=== PATIENT | male | born 1955 | race Caucasian/White ===

== ENCOUNTER 2017-02-08 06:45 | Emergency (ER) | payer OTHER ==
[~2017-02-08] VITALS: Ht 172.7 cm; Wt 79.4 kg
[~2017-02-08 06:45] MED LIST: BAYER CHEWABLE81 MG PO; CIPRO 500MG (E500 MG PO; ENDOCET 325 MG-1 TA1 PO; FLAGYL 25O MG250 M1 PO; FLEXERIL10 MG PO; GOOD SENSE ASP325 MG PO; IBU800 MG PO; IBUPROFEN800 M1 PO; KEFLEX500 M1 PO; LIDODERM1 EACH TOP; NAPROXEN500 MG PO; PERCOCET 325 MG1 TA2 PO; RANITIDINE HCL150 MG PO; RANITIDINE150 MG PO; TRAMADOL50 MG PO; TYLENOL #31 TAB PO; VICODIN 5-3001 EACH PO; VITAMIN D2000 UNI1 PO; VOLTAREN75 MG PO
[2017-02-08 06:55] VITALS: BP 123/74
--- NOTE | 2017-02-08 07:24 | ED HAND/WRIST INJURY COMPLAINT ---
History of Present Illness General Chief Complaint: Hand or Wrist Injury Stated Complaint: ? LT RING FINGER FX Source: patient, family, old records Exam Limitations: no limitations Vital Signs & Intake/Output Vital Signs & Intake/Output Vital Signs Date Time Temp Pulse Resp B/P Pulse O2 O2 Flow FiO2 Ox Delivery Rate 02/08 655 96.4 77 18 123/74 98 Room Air 02/08 0654 Room Air Allergies Coded Allergies: No Known Allergies (02/08/17) Reconcile Medications Aspirin (Linda Chewable Aspirin) 81 MG TAB.CHEW 1 TAB PO QAM HEART/BLOOD ( Reported) Cholecalciferol (Vitamin D3) (Vitamin D) (Unknown Strength) TABLET (Unknown Dose) PO QAM SUPPLEMENT (Reported) Oxycodone HCl/Acetaminophen (Percocet 5-325 MG Tablet) 5 MG-325 MG TABLET 1 TAB PO Q6P PRN pain Ranitidine (Ranitidine HCl) 150 MG TABLET 1 TAB PO QAM GI (Reported) Triage Note: TRIAGE: PATIENT TO ER FROM HOME REPORTS L MIDDLE FINGER INJURY WHILE PLACING HIS GARBAGE INTO GARBAGE CAN "TIE GOT LOOPED AROUND IT AND I HEARD A SNAP." PATIENT REPORTING 9/10 PAIN TO [facility] W/ [facility]. Triage Nurses Notes Reviewed? yes Occurred: just prior to arrival Duration: minute(s):, constant, continues in ED Timing: single episode today Injury Environment: home Severity: severe Pain/Injury Location: Left: 4th finger (RHD). Context: tourniquet injury Method of Injury: twisted Modifying Factors: Improves With: immobilization. Worsens With: movement. Associated Symptoms: GCS 15 since, stiffness HPI: Prior to admission patient was taking garbage out to throw into dumpster when the plastic tie entrapped his left ring finger proximal phalanx. He complains of severe pain limited range of motion constant nonradiating. Denies other injury fever chills nausea vomiting diarrhea abdominal pain chest pain shortness breath headache dysuria rash bleeding. Past History Travel History Traveled to [place] past 21 day No Medical History Any Pertinent Medical History? see below for history Neurological: NONE EENT: NONE Cardiovascular: NONE Respiratory: NONE Gastrointestinal: GERD Hepatic: NONE Renal: BORN W/ ONE KIDNEY Musculoskeletal: osteoarthritis Psychiatric: NONE Endocrine: NONE Blood Disorders: NONE Cancer(s): NONE PULP TESTER/Reproductive: NONE Surgical History Surgical History: LEFT HAND CYST REMOVED Psychosocial History What is your primary language Vincentian Tobacco Use: Refused to answer Family History Hx Contributory? No Review of Systems Review of Systems Constitutional: Reports: no symptoms. EENTM: Reports: no symptoms. Respiratory: Reports: no symptoms. Cardiovascular: Reports: no symptoms. GI: Reports: no symptoms. Genitourinary: Reports: no symptoms. Musculoskeletal: Reports: see HPI, joint pain, joint swelling. Skin: Reports: no symptoms. Neurological/Psychological: Reports: no symptoms. Hematologic/Endocrine: Reports: no symptoms. Immunologic/Allergic: Reports: no symptoms. All Other Systems: Reviewed and Negative Physical Exam Physical Exam General Appearance: well developed/nourished, alert, awake, anxious, moderate distress Head: atraumatic, normal appearance Eyes: Bilateral: normal appearance, PERRL, EOMI. Ears, Nose, Throat: normal pharynx, normal ENT inspection, hearing grossly normal Neck: normal inspection, supple Cardiovascular/Respiratory: normal breath sounds, regular rate/rhythm Back: normal inspection Shoulder Left: normal range of motion, normal inspection Shoulder Right: normal range of motion, normal inspection Elbow Left: normal range of motion, normal inspection Elbow Right: normal range of motion, normal inspection Forearm Left: normal range of motion, normal inspection Forearm Right: normal range of motion, normal inspection Wrist Left: normal range of motion, normal inspection Wrist Right: normal range of motion, normal inspection Hand Left: bone tenderness, limited range of motion, evidence of injury, swelling, tender, 4th finger Hand Right: normal inspection, normal range of motion Reflexes: 2+: bicep (R), bicep (L). Neurologic/Tendon: normal sensation, normal motor functions, normal tendon functions Skin: intact, normal color, warm/dry Lymphatic: no anterior cervical wiliam Progress Differential Diagnosis: fracture, sprain Plan of Care: Orders Procedure Date/time Status XRY-FINGERS, LEFT 02/09 720 Active Current Medications Sig/Tavo Start time Last Medication Dose Stop Time Status Admin Oxycodone/ 1 TAB ONCE ONE 02/08 730 UNVr Acetaminophen 02/08 731 (Percocet) Diagnostic Imaging: Viewed by Me: Radiology Read. Discussed w/RAD: Radiology Read. Radiology Impression: Comminuted fracture of the fourth digit proximal phalanx without significant displacement. Departure Departure Time of Disposition: 815 Disposition: HOME OR SELF CARE Condition: Stable Clinical Impression Primary Impression: Fracture of finger of left hand Referrals: LAZARA GARCIA,MAE (PCP/Family) SARA GARCIA,ROSIBEL Call for orthopedic follow up Departure Forms: Customer Survey General Discharge Information Prescriptions: Current Visit Scripts Oxycodone HCl/Acetaminophen (Percocet 5-325 MG Tablet) 1 TAB PO Q6P PRN pain #15 TAB
--- NOTE | 2017-02-08 07:50 | RADIOLOGY REPORT ---
EXAMINATION: XR FINGER, LEFT CLINICAL INFORMATION: Left ring finger tourniquet injury. COMPARISON: None TECHNIQUE: Three views of the left hand fourth digit. FINDINGS: There is a comminuted fracture of the fourth digit proximal phalanx. There is no significant displacement of fracture fragments. No definite intra-articular extension, although the fracture line does extend near the proximal interphalangeal joint. There is soft tissue swelling. Degenerative changes are seen throughout the interphalangeal joints with small osteophytes. Mild degenerative changes also present at the first carpometacarpal joint and first metacarpophalangeal joint. IMPRESSION: Comminuted fracture of the fourth digit proximal phalanx without significant displacement.
[2017-02-08] MEDS ORDERED: PERCOCET 5-3251 EACH PO (08:17)
== END 2017-02-08 08:16 ==
LOC: ERH 06:45
DX: S62.615A Displaced fracture of proximal phalanx of left ring finger, initial encounter for closed fracture (principal); X58.XXXA Exposure to other specified factors, initial encounter; Y92.9 Unspecified place or not applicable; Y93.9 Activity, unspecified
CPT/HCPCS: 73140-LT

== ENCOUNTER 2017-03-15 12:44 | Emergency (ER) | payer OTHER ==
[~2017-03-15] VITALS: Ht 175.3 cm; Wt 81.6 kg
[~2017-03-15 12:44] MED LIST changes: +PERCOCET 5-3251 EACH PO
[2017-03-15 12:48] VITALS: BP 135/75
--- NOTE | 2017-03-15 13:40 | RADIOLOGY REPORT ---
EXAMINATION: CHEST 2 VIEWS CLINICAL INFORMATION: Cough. COMPARISON: 06/11/2014. TECHNIQUE: PA and lateral views of the chest were obtained. FINDINGS: The cardiac silhouette is not enlarged. The mediastinal and hilar contours are unremarkable. There are neither pleural effusions nor pneumothoraces. There are no consolidations. The lungs are hyperinflated. There is mild degenerative change within the thoracic spine. The osseous structures are otherwise unremarkable. IMPRESSION: No evidence for acute disease. Lung hyperinflation.
--- NOTE | 2017-03-15 14:13 | ED DYSPNEA/ASTHMA COMPLAINT ---
History of Present Illness General Chief Complaint: General Adult Stated Complaint: COUGH/COLD SYMPTOMS, TICK BITE Source: patient Exam Limitations: no limitations Vital Signs & Intake/Output Vital Signs & Intake/Output Vital Signs Date Time Temp Pulse Resp B/P B/P Pulse O2 O2 Flow FiO2 Mean Ox Delivery Rate 03/15 1430 96 03/15 1349 96 Room Air 03/15 1345 96 03/15 1248 96.9 84 18 135/75 95 Room Air Allergies Coded Allergies: No Known Allergies (02/08/17) Reconcile Medications Albuterol Sulfate (Proventil Hfa) 90 MCG HFA.AER.AD 2 PUF INH Q4 SOB Aspirin (Linda Chewable Aspirin) 81 MG TAB.CHEW 1 TAB PO QAM HEART/BLOOD ( Reported) Benzonatate 200 MG CAPSULE 1 CAP PO TIDPRN cough Cholecalciferol (Vitamin D3) (Vitamin D) (Unknown Strength) TABLET (Unknown Dose) PO QAM SUPPLEMENT (Reported) Doxycycline Hyclate 100 MG TABLET 1 TAB PO BID BRONCHITIS Hydrocodone/Acetaminophen (Hydrocodon-Acetaminophen 5-325) 5 MG-325 MG TABLET 1-2 TAB PO Q4-6 PRN PRN PAIN Prednisone (Deltasone) 20 MG TABLET 1 TAB PO TID BRONCHITIS Ranitidine (Ranitidine HCl) 150 MG TABLET 1 TAB PO QAM GI (Reported) Triage Note: 61 YO MALE TO TRIAGE C/O TICK BITE ON MONDAY. PT REPORTS BODY ACHES AND SWELLING TO JOINTS. STATES VOICE HAS BEEN HOARSE. DENIES FEVERS. AFEBRILE AT THIS TIME. Triage Nurses Notes Reviewed? yes Onset: Abrupt Duration: day(s):, constant, continues in ED Timing: recent history Severity: moderate, severe HPI: 61-year-old male that smokes daily comes into emergency room with complaints of nasal congestion, sore throat, cough, mucus production, and some shortness of breath. Denies any chest pain. Denies any fever. Denies any vomiting. Nothing seems to make the symptoms better or worse. Symptoms of a going on for the past few days. Patient reports he was also bitten by a tick on Monday. He pulled a tick off himself. He does not think to take with on there for more than 24 hours. Patient also reports that he was here a couple weeks ago for a broken left ring finger. He came out of the splint and never followed up with orthopedic doctor he reports. (DOLORES WONG) Past History Travel History Traveled to [place] past 21 day No Medical History Any Pertinent Medical History? 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 No (DOLORES WONG) Review of Systems Review of Systems Constitutional: Reports: see HPI. EENTM: Reports: see HPI. Respiratory: Reports: see HPI. Cardiovascular: Reports: no symptoms. GI: Reports: no symptoms. Genitourinary: Reports: no symptoms. Musculoskeletal: Reports: no symptoms. Skin: Reports: no symptoms. Neurological/Psychological: Reports: no symptoms. Hematologic/Endocrine: Reports: no symptoms. Immunologic/Allergic: Reports: no symptoms. All Other Systems: Reviewed and Negative (DOLORES WONG) Physical Exam Physical Exam General Appearance: well developed/nourished, alert, awake Head: atraumatic, normal appearance Eyes: Bilateral: normal appearance, EOMI. Ears, Nose, Throat: normal pharynx, normal ENT inspection, hearing grossly normal Neck: normal inspection Respiratory: no respiratory distress, rhonchi, wheezing Cardiovascular: regular rate/rhythm Gastrointestinal: soft Extremities: normal inspection, normal range of motion Neurologic/Psych: awake, alert, oriented x 3, normal gait, normal mood/affect Skin: intact, normal color Core Measures ACS in differential dx? No Severe Sepsis Present: No Septic Shock Present: No (DOLORES WONG) Progress Differential Diagnosis: asthma, AMI, bronchitis, costochondritis, CHF, COPD, musculoskeletal pain, pericarditis, pulmonary embolism, pneumonia, pneumothorax, rib fracture, unstable angina Plan of Care: Orders Procedure Date/time Status AEROSOL (GEN) 03/15 1425 Complete AEROSOL (GEN) 03/15 1337 Complete Diagnostic Imaging: Viewed by Me: Radiology Read. Discussed w/RAD: Radiology Read. Radiology Impression: SERVICE DATE: 03/15/17-1315 EXAM TYPE: RAD - XRY-CHEST XRAY, PA AND LATERAL EXAMINATION: CHEST 2 VIEWS CLINICAL INFORMATION: Cough. COMPARISON: 06/11/2014. TECHNIQUE: PA and lateral views of the chest were obtained. FINDINGS: The cardiac silhouette is not enlarged. The mediastinal and hilar contours are unremarkable. There are neither pleural effusions nor pneumothoraces. There are no consolidations. The lungs are hyperinflated. There is mild degenerative change within the thoracic spine. The osseous structures are otherwise unremarkable. IMPRESSION: No evidence for acute disease. Lung hyperinflation. DICTATED BY: SOLE MOHAN MD DATE/TIME DICTATED:03/15/171334 RECYCLING MANAGER:AMEYA DATE/TIME TRANSCRIBED:03/15/171334 Initial ED EKG: none (NELIA KANG,DOLORES) Departure Departure Disposition: HOME OR SELF CARE Condition: Stable Clinical Impression Primary Impression: Bronchitis Secondary Impressions: Tick bite Referrals: MALIKA GARCIA,GIOVANNA HAILE MD,MAE (PCP/Family) Additional Instructions: Take prednisone, doxycycline, Tessalon Perles, and albuterol as prescribed. Take Vicodin for pain. Follow-up with your primary care doctor. Follow-up with orthopedic doctor provided for your finger. Return if any other concerns worsening symptoms. Follow-up with your primary care doctor be tested for Lyme disease in 4 weeks. Please go over all results of today's visit with your primary care doctor. Contact your primary care doctor to let them know you were here in the emergency room. There may be nonspecific findings which may not be related to your visit today here in the emergency room but may require further evaluation and chronic monitoring by your primary care doctor. If you had a laceration today the chance of foreign body always remains. You should follow-up with your primary care doctor for recheck in 3-5 days for a wound check. If you had an x-ray done there is a chance that a fracture could have been missed on initial read and you should follow-up with your primary care doctor for repeat x-rays if symptoms persist. If your blood pressure was elevated here in the emergency room please have rechecked by her primary care doctor within the next 48 hours by your primary care doctor. If you were prescribed a narcotic here in the emergency room or any type of controlled substances you're not allowed to drive while taking this medication or operate any type of heavy machinery. Narcotics can make you feel lightheaded dizziness nausea and can cause constipation. You may need to crop picker a stool softener. Thank you for choosing [facility] emergency room. Please return to the emergency room immediately if you have any other concerns worsening of symptoms. Departure Forms: Customer Survey General Discharge Information Prescriptions: Current Visit Scripts Benzonatate 1 CAP PO TIDPRN #30 CAP Prednisone (Deltasone) 1 TAB PO TID #12 MG Albuterol Sulfate (Proventil Hfa) 2 PUF INH Q4 #1 INHAL Doxycycline Hyclate 1 TAB PO BID #20 TAB Hydrocodone/Acetaminophen (Hydrocodon-Acetaminophen 5-325) 1-2 TAB PO Q4-6 PRN PRN PAIN #10 TAB Comments 03/15/2017 2:45:14 PM Symptoms are most consistent with bronchitis. Patient clinically looks well. In no apparent distress. Nontoxic appearing. Patient feels better after nebulizer treatment. Patient started on Doxy which will also have coverage for possible tickborne disease although patient reports a tick was not on there for 24 hours so unlikely that he will test positive. Patient was recommended to follow-up with his primary for a Lyme titer. Patient never followed up with orthopedic doctor for his broken finger a few weeks ago. He was referred to one today. Larry taped his finger. Clinically looks well. In no apparent distress. Nontoxic appearing. Reevaluated multiple times. Understands and agrees with plan of care. Symptoms go along with viral illness. No complaints of chest pain. (DOLORES WONG) PA/MICROBIOLOGY TEACHER Co-Sign Statement Statement: ED Attending supervision documentation- x I saw and evaluated the patient. I have also reviewed all the pertinent lab results and diagnostic results. I agree with the findings and the plan of care as documented in the PA's/MICROBIOLOGY TEACHER's documentation. [] I have reviewed the ED Record and agree with the PA's/MICROBIOLOGY TEACHER's documentation. [] Additions or exceptions (if any) to the PAs/MICROBIOLOGY TEACHER's note and plan are summarized below: [] (JESÚS GARCIA,NICK) Critical Care Note Critical Care Note Critical Care Time: non-applicable (DOLORES WONG)
[2017-03-15] MEDS ORDERED: DOXYCYCLINE HY100 M4 PO (14:14)
[2017-03-15] MEDS ORDERED: PROVENTIL HFA6.7 GM INH (14:14)
[2017-03-15] MEDS ORDERED: HYDROCODON-ACE1 EAC2 PO (14:14)
[2017-03-15] MEDS ORDERED: BENZONATATE200 M1 PO (14:14)
[2017-03-15] MEDS ORDERED: DELTASONE20 MG PO (14:14)
== END 2017-03-15 14:51 ==
LOC: ERH 12:44
DX: J40 Bronchitis, not specified as acute or chronic (principal); F17.210 Nicotine dependence, cigarettes, uncomplicated; W57.XXXA Bitten or stung by nonvenomous insect and other nonvenomous arthropods, initial encounter
CPT/HCPCS: 1263

== ENCOUNTER 2017-05-20 17:02 | Emergency (ER) | payer OTHER ==
[~2017-05-20] VITALS: Ht 172.7 cm; Wt 77.1 kg
[~2017-05-20 17:02] MED LIST changes: +BENZONATATE200 M1 PO; +DELTASONE20 MG PO; +DOXYCYCLINE HY100 M4 PO; +HYDROCODON-ACE1 EAC2 PO; +PROVENTIL HFA6.7 GM INH
--- NOTE | 2017-05-20 17:08 | ED SKIN/ALLERGY COMPLAINT ---
History of Present Illness General Chief Complaint: Animal/Insect Bite Stated Complaint: MULTIPLE BEE STINGS Source: patient Exam Limitations: no limitations Allergies Coded Allergies: bee venom protein (honey bee) (Severe, ANAPHYLAXIS 05/20/17) Reconcile Medications Aspirin (Linda Chewable Aspirin) 81 MG TAB.CHEW 1 TAB PO QAM HEART/BLOOD ( Reported) Epinephrine (Epipen) 0.3 MG/0.3 ML AUTO.INJCT 0.3 MG IM AD ANAPHYLAXIS Hydroxyzine HCl 50 MG TABLET 1 TAB PO TID ITCHING Naproxen 500 MG TABLET 1 TAB PO BID BURSITIS (Reported) Prednisone (Deltasone) 20 MG TABLET 1 TAB PO TID ALLERGIC REACTION Triage Nurses Notes Reviewed? yes Onset: Abrupt Duration: hour(s): (1), constant, continues in ED Timing: recent history Severity: moderate, severe No Modifying Factors: none HPI: 61 -year-old male comes in for allergic reaction after being stung by a bee about an hour prior to arrival. patient reports that his lips are swelling any signs of difficulty breathing and difficulty swallowing. He feels short of breath. He has rash throughout his body. Patient has not taken anything for the symptoms. Denies any other substances symptoms. Patient got stung by multiple bees when he was mowing the lawn he hit a hive. (NELIA KANG,DOLORES) Vital Signs & Intake/Output Vital Signs & Intake/Output Vital Signs Date Time Temp Pulse Resp B/P B/P Pulse O2 O2 Flow FiO2 Mean Ox Delivery Rate 05/20 2224 97.6 64 18 106/66 97 Room Air 05/20 2145 64 18 103/55 95 Room Air 05/20 2028 65 100/58 99 Room Air 05/20 1901 67 15 117/65 98 Room Air Room Air 05/20 1827 97.1 62 15 104/61 99 Nasal 2.0L Cannula 05/20 1749 64 15 93/59 100 Nasal 2.0L Cannula 05/20 1709 75 24 107/66 97 Room Air Past History Medical History Any Pertinent Medical History? 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 No (DOLORES WONG) Review of Systems Review of Systems Constitutional: Reports: no symptoms. EENTM: Reports: no symptoms. Respiratory: Reports: no symptoms. Cardiovascular: Reports: no symptoms. GI: Reports: no symptoms. Genitourinary: Reports: no symptoms. Musculoskeletal: Reports: no symptoms. Skin: Reports: see HPI. Neurological/Psychological: Reports: no symptoms. Hematologic/Endocrine: Reports: no symptoms. Immunologic/Allergic: Reports: see HPI. All Other Systems: Reviewed and Negative (DOLORES WONG) Physical Exam Physical Exam General Appearance: well developed/nourished, moderate distress Head: atraumatic Eyes: Bilateral: normal appearance, EOMI. Ears, Nose, Throat: normal ENT inspection, hearing grossly normal, mild tongue swelling, edema of lower lip, Neck: normal inspection Respiratory: no respiratory distress, rhonchi, wheezing Cardiovascular: regular rate/rhythm Back: normal inspection Extremities: normal inspection, normal range of motion, no edema Neurologic/Psych: awake, alert, oriented x 3, normal mood/affect Skin: intact, rash Skin Problem Location: generalized Skin Problem Character: urticarial Lymphatic: no anterior cervical wiliam (DOLORES WONG) Progress Differential Diagnosis: abscess/cellulitis, allergic reaction, anaphylaxis, angioedema, asthma, contact dermatitis Plan of Care: Current Medications Sig/Tavo Start time Last Medication Dose Stop Time Status Admin Sodium Chloride 500 ML BOLUS ONE 05/20 2100 CAN (Normal Saline 0.9%) 05/20 2159 Hand-Off Endorsed To: TAMMY MUSE DO Endorsed Time: 2053 Pending: other (reevaluation) Comments: 05/20/2017 7:59:41 PM Patient reevaluated. He feels significantly better. His swelling in his mouth was improved. His voice is improved. His rash is improved. 05/20/2017 8:54:00 PM Patient's blood pressure slightly low. Patient given a liter bolus. He reports that he feels significantly better and feels ready to go home and is asymptomatic otherwise. Patient will be further observed to make sure his blood pressure improves. Patient signout to Dr. Muse. (DOLORES WONG) Departure Departure Disposition: HOME OR SELF CARE Condition: Stable Clinical Impression Primary Impression: Anaphylaxis Referrals: MAE HAILE MD (PCP/Family) Additional Instructions: Take prednisone as prescribed. Carly epinephrine pen with you. Have any recurrent bee stings and are having respiratory distress use EpiPen. If you use hydroxyzine as prescribed. Please go over all results of today's visit with your primary care doctor. Contact your primary care doctor to let them know you were here in the emergency room. There may be nonspecific findings which may not be related to your visit today here in the emergency room but may require further evaluation and chronic monitoring by your primary care doctor. If you had a laceration today the chance of foreign body always remains. You should follow-up with your primary care doctor for recheck in 3-5 days for a wound check. If you had an x-ray done there is a chance that a fracture could have been missed on initial read and you should follow-up with your primary care doctor for repeat x-rays if symptoms persist. If your blood pressure was elevated here in the emergency room please have rechecked by her primary care doctor within the next 48 hours by your primary care doctor. If you were prescribed a narcotic here in the emergency room or any type of controlled substances you're not allowed to drive while taking this medication or operate any type of heavy machinery. Narcotics can make you feel lightheaded dizziness nausea and can cause constipation. You may need to picking machine operator a stool softener. Thank you for choosing [facility] emergency room. Please return to the emergency room immediately if you have any other concerns worsening of symptoms. Departure Forms: Customer Survey General Discharge Information Prescriptions: Current Visit Scripts Prednisone (Deltasone) 1 TAB PO TID #15 MG Hydroxyzine HCl 1 TAB PO TID #20 TAB Epinephrine (Epipen) 0.3 MG IM AD #1 PAC (DOLORES WONG) PA/STATISTICAL ASSISTANT Co-Sign Statement Statement: ED Attending supervision documentation- [X] I saw and evaluated the patient. I have also reviewed all the pertinent lab results and diagnostic results. I agree with the findings and the plan of care as documented in the PA's/STATISTICAL ASSISTANT's documentation. [] I have reviewed the ED Record and agree with the PA's/STATISTICAL ASSISTANT's documentation. [] Additions or exceptions (if any) to the PAs/STATISTICAL ASSISTANT's note and plan are summarized below: [] (MEDELLIN TAMMY GARCIA) Departure Comments 05/20/17 11:34 PM The patient was signed out to me by Dolores Aguirre. He remains asymptomatic in the emergency department Lungs are clear no stridor He was sleeping Now awake alert oriented 3 He was observed for approximately 6 hours He was discharged and will follow-up with his doctor this week., PA/STATISTICAL ASSISTANT Co-Sign Statement Statement: ED Attending supervision documentation- [] I saw and evaluated the patient. I have also reviewed all the pertinent lab results and diagnostic results. I agree with the findings and the plan of care as documented in the PA's/STATISTICAL ASSISTANT's documentation. [] I have reviewed the ED Record and agree with the PA's/STATISTICAL ASSISTANT's documentation. [] Additions or exceptions (if any) to the PAs/STATISTICAL ASSISTANT's note and plan are summarized below: [] (ALMAZ MCCLELLAND,TAMMY Ray) Critical Care Note Critical Care Note Critical Care Time: 30-74 min (60) (DOLORES WONG)
[2017-05-20] MEDS ORDERED: NAPROXEN500 M2 PO (17:14)
[2017-05-20] MEDS ORDERED: DELTASONE20 MG PO (19:42)
[2017-05-20] MEDS ORDERED: EPIPEN0.3 MG/0.1 IM (19:42)
[2017-05-20] MEDS ORDERED: HYDROXYZINE HCL50 M1 PO (19:42)
[2017-05-20 23:44] VITALS: BP 106/59
== END 2017-05-20 23:45 ==
LOC: ERH 17:02
DX: T63.441A Toxic effect of venom of bees, accidental (unintentional), initial encounter (principal)
CPT/HCPCS: 96372; 96374; 96375; J0171; J1200; J2930

== ENCOUNTER 2018-04-09 08:22 | Emergency (ER) | payer OTHER ==
[~2018-04-09] VITALS: Ht 175.3 cm; Wt 74.8 kg
[~2018-04-09 08:22] MED LIST changes: +CHANTIX1 EACH; +EPIPEN0.3 MG/0.1 IM; +HYDROXYZINE HCL50 M1 PO; +NAPROXEN500 M2 PO; +VITAMIN D31000 UNI1 PO
[2018-04-09 08:27] VITALS: BP 169/75
--- NOTE | 2018-04-09 08:53 | ED GENERAL ADULT ---
History of Present Illness General Chief Complaint: Suture Removal/Wound Recheck Stated Complaint: SUTURE REMOVAL Source: patient Exam Limitations: no limitations Vital Signs & Intake/Output Vital Signs & Intake/Output Vital Signs Date Time Temp Pulse Resp B/P B/P Pulse O2 O2 Flow FiO2 Mean Ox Delivery Rate 04/09 0827 97.8 50 18 169/75 98 Room Air Allergies Coded Allergies: bee venom protein (honey bee) (Severe, ANAPHYLAXIS 05/20/17) Reconcile Medications Aspirin (Linda Chewable Aspirin) 81 MG TAB.CHEW 1 TAB PO QAM HEART/BLOOD ( Reported) Cholecalciferol (Vitamin D3) (Vitamin D3) 1,000 UNIT CAPSULE 1 CAP PO DAILY SUPPLEMENT (Reported) Epinephrine (Epipen) 0.3 MG/0.3 ML AUTO.INJCT 0.3 MG IM AD ANAPHYLAXIS Ibuprofen 800 MG TABLET 1 TAB PO PRN PAIN/INFLAMMATION (Reported) Triage Note: PT HERE TO HAVE RONNI REMOVED FROM HEAD, STATES THAT THERE IS 11 OF THEM. Triage Nurses Notes Reviewed? yes HPI: 62 yo M PMH A-Fib presenting with scalp laceration for suture removal. Patient was intoxicated 7 days ago, fell, sustained laceration to scalp, evaluated in this ED, repaired with ronni, discharged in stable condition, patient returns for re-evaluation of wound and staple removal. Wound healing well without pain, redness, swelling or drainage of pus. Lynnette fevers, chills, headache, neck pain , N/V, or focal neurologic Sx. (Suzan GARCIA,Navjot) Past History Travel History Traveled to [place] past 21 day No Medical History Any Pertinent Medical History? 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 Yes (Navjot Mares MD) Review of Systems Review of Systems Constitutional: Reports: no symptoms. EENTM: Reports: no symptoms. Respiratory: Reports: no symptoms. Cardiovascular: Reports: no symptoms. GI: Reports: no symptoms. Genitourinary: Reports: no symptoms. Musculoskeletal: Reports: no symptoms. Skin: Reports: see HPI. Neurological/Psychological: Reports: no symptoms. Hematologic/Endocrine: Reports: no symptoms. Immunologic/Allergic: Reports: no symptoms. All Other Systems: Reviewed and Negative (Navjot Mares MD) Physical Exam Physical Exam General Appearance: well developed/nourished, no apparent distress, alert, awake Head: Wound Eyes: Bilateral: PERRL, EOMI. Neck: full range of motion, no midline tenderness Respiratory: normal breath sounds, lungs clear Cardiovascular: bradycardia Gastrointestinal: soft, non-tender Comments: Scalp: 2-3 cm laceration x2 to scalp, well healed, non-erythematous, non-TTP, no purulent drainage Core Measures ACS in differential dx? No CVA/TIA Diagnosis: No Sepsis Present: No Sepsis Focused Exam Completed? No (Navjot Mares MD) Progress Differential Diagnoses I considered the following diagnoses in my evaluation of the patient: [ Laceration, wound infection] Plan of Care: Physician MDM: 62 yo M presenting with scalp lacerations s/p repair for staple removal. HR 50s, well appearing, otherwise VSS, scalp lacerations well healed without evidence of infection. Ronni removed, discharged with return precautions for signs of infection. Initial ED EKG: none (Navjot Mares MD) Departure Departure Disposition: HOME OR SELF CARE Condition: Stable Clinical Impression Primary Impression: Encounter for staple removal Referrals: Ange GARCIA,Efraín Lugo (PCP/Family) Additional Instructions: Return to the ED for redness, pain or drainage of pus from wound sites. Departure Forms: Customer Survey General Discharge Information (Navjot Mares MD) Resident Co-Sign Statement Statement: ED Attending supervision documentation- [] I saw and evaluated the patient. I have also reviewed all the pertinent lab results and diagnostic results. I agree with the findings and the plan of care as documented in the Resident's documentation. [X] I have reviewed the ED Record and agree with the Resident's documentation. [] Additions or exceptions (if any) to the Resident's note and plan are summarized below: [] (Hipolito Garza DO) Critical Care Note Critical Care Note Critical Care Time: non-applicable (Navjot Mares MD)
== END 2018-04-09 09:00 ==
LOC: ERH 08:22
DX: Z48.02 Encounter for removal of sutures (principal)

== ENCOUNTER 2018-05-16 20:17 | Observation (INO) | payer OTHER ==
[2018-05-16 20:57] LABS: ABSOLUTE BASOPHIL COUNT 0.1 /CUMM (0.0-0.2); ABSOLUTE EOSINOPHIL COUNT 0 /CUMM (0.0-0.7); ABSOLUTE GRANULOCYTE CT 5.5 /CUMM (1.4-6.5); ABSOLUTE LYMPH COUNT 2.3 /CUMM (1.2-3.4); ABSOLUTE MONOCYTE COUNT 0.3 /CUMM (0.10-0.60); BASOPHIL % 1.2 % (0.0-2.0); EOSINOPHIL % 0.2 % (0-5); GRANULOCYTE % 66.5 % (42.2-75.2); HEMATOCRIT 37.6 % (42-52); MEAN CORPUSCULAR HGB 35.2 PG (27.0-31.0); MEAN CORPUSCULAR HGB CONC 34.1 G/DL (33.0-37.0); MEAN PLATELET VOLUME 7.2 FL (7.4-10.4); PLATELET COUNT 370 /CUMM (130-400); RBC DISTRIBUTION WIDTH 17.3 % (11.5-14.5); RED BLOOD CELL CT 3.65 /CUMM (4.70-6.10); WHITE BLOOD CELL COUNT 8.3 /CUMM (4.8-10.8)
[2018-05-16] MEDS ORDERED: LIDOCAINE1 EACH TOP (21:15)
[2018-05-16] MEDS ORDERED: NAPROXEN500 M2 PO (21:16)
[2018-05-16] MEDS ORDERED: VITAMIN D31000 UNI1 PO (21:16)
--- NOTE | 2018-05-16 21:34 | RADIOLOGY REPORT ---
EXAMINATION: XR PORTABLE CHEST CLINICAL INFORMATION: Shortness of breath COMPARISON: 04/29/2018 TECHNIQUE: Portable frontal view of the chest was obtained. FINDINGS: No significant abnormality is noted involving the heart, lungs, mediastinum, bony thorax or soft tissues. IMPRESSION: No infiltrate or CHF.
--- NOTE | 2018-05-16 22:18 | ED PSYCHIATRIC COMPLAINT ---
History of Present Illness General Chief Complaint: General Adult Stated Complaint: ALCOHOL INTOX Source: patient, old records Exam Limitations: intoxication Vital Signs & Intake/Output Vital Signs & Intake/Output Vital Signs Date Time Temp Pulse Resp B/P B/P Pulse O2 O2 Flow FiO2 Mean Ox Delivery Rate 05/17 0555 98.1 76 18 119/79 99 Room Air 05/16 2321 98.1 77 16 109/63 95 Room Air 05/16 2052 98.8 05/16 2035 Room Air 05/16 2020 72 18 131/72 95 Room Air ED Intake and Output 05/17 0000 05/16 1200 Intake Total 1000 Output Total Balance 1000 Intake, IV 1000 Allergies Coded Allergies: bee venom protein (honey bee) (Severe, ANAPHYLAXIS 05/20/17) Reconcile Medications Aspirin (Linda Chewable Aspirin) 81 MG TAB.CHEW 1 TAB PO QAM HEART/BLOOD ( Reported) Cholecalciferol (Vitamin D3) (Vitamin D3) 1,000 UNIT CAPSULE 1 CAP PO DAILY SUPPLEMENT (Reported) Epinephrine (Epipen) 0.3 MG/0.3 ML AUTO.INJCT 0.3 MG IM AD ANAPHYLAXIS Lidocaine 5 % ADH..PATCH 1-2 PAT TOP PRN PAIN (Reported) Naproxen 500 MG TABLET 1 TAB PO BID PAIN/INFLAMMATION (Reported) Triage Note: 62M REQUIRING EXTRACTION FROM VEHICLE WITH FAMILY MEMBER REPORTING HE HAS BEEN IN THE HOT CAR UNRESPONSIVE FOR UP TO 2 HOURS. PT AROUSABLE TO STERNAL RUB AND PLACED IN STRETCHER IN PARKING LOT AND BROUGHT TO ROOM 12. FAMILY REPORTS SIGNIFICANT CARDIAC HX. PERCOCETS FOUND IN POCKET ON ARRIVAL AND PT ADMITS TO HEAVY ETOH USE TODAY. EXTREMELY DIAPHORETIC AND SATURATED ON ARRIVAL. ABLE TO FOLLOW COMMANDS. PT DENIES SI/HI, CALM AND COOPERATIVE. MAINTAINING AIRWAY AND RESPIRATIONS EVEN AND UNLABORED. DR ESPINOSA NOTIFIED Triage Nurses Notes Reviewed? yes Onset: Just prior to arrival Duration: hour(s):, constant, continues in ED Timing: recent history Severity: severe Associated Symptoms: impaired concentration HPI: Family reports patient has been the car for 2 hours unresponsive. The ex- reports he is been with a friend working on cars and drank whiskey. Percocet was found in a bag with a straw and a small rock likely for crushing the tabs. He complains of shortness of breath and nausea. The patient denies fever chills vomiting diarrhea abdominal pain chest pain headache dysuria rash bleeding. (Ruddy Espinosa MD) Past History Travel History Traveled to [place] past 21 day No Medical History Blood Transfusion Hx: No Any Pertinent Medical History? 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 No (Ruddy Espinosa MD) Review of Systems Review of Systems Constitutional: Reports: see HPI, weakness. EENTM: Reports: no symptoms. Respiratory: Reports: no symptoms. Cardiovascular: Reports: no symptoms. GI: Reports: no symptoms. Genitourinary: Reports: no symptoms. Musculoskeletal: Reports: no symptoms. Skin: Reports: no symptoms. Neurological/Psychological: Reports: see HPI, cognitive dysfunction, weakness. Hematologic/Endocrine: Reports: no symptoms. Immunologic/Allergic: Reports: no symptoms. All Other Systems: Reviewed and Negative (Ruddy Espinosa MD) Physical Exam Physical Exam General Appearance: well developed/nourished, lethargic (arousable), mild distress Head: atraumatic, normal appearance Eyes: Bilateral: normal appearance, PERRL, EOMI. 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 patient not suicidal (Bisi GARCIA,Ruddy) Progress Differential Diagnosis: drug intoxication, drug overdose, drug withdrawal, electrolyte abnormality, hypoglycemia Plan of Care: Orders Procedure Date/time Status Discharge Patient 05/17 0641 Active Patient Safety Monitor 05/17 0430 Active Patient Safety Monitor 05/17 0030 Active OXYGEN SETUP (GEN) 05/16 2147 Active Saline Lock 05/[address] in observation 05/16 2147 Active Patient Data 05/16 2147 Active Vital Signs 05/16 2147 Active Activity/Ambulation 05/16 2147 Active Code Status 05/16 2147 Active Intake & Output 05/16 2044 Active Patient Safety Monitor 05/16 2035 Active URINE DRUG SCREEN FOR ER ONLY 05/16 2035 Complete ETHANOL 05/16 2035 Complete COMPREHENSIVE METABOLIC PANEL 05/16 2035 Complete CBC WITHOUT DIFFERENTIAL 05/16 2035 Complete EKG 05/16 2019 Active Laboratory Tests 05/16/182158: Urine Opiates Screen 251, Methadone Screen < 40, Barbiturate Screen < 60, Ur Phencyclidine Scrn < 6.00, Amphetamines Screen < 100, U Benzodiazepines Scrn < 85, Urine Cocaine Screen < 50, Urine Cannabis Screen < 5.00 05/16/182043: Anion Gap 18 H, Estimated GFR > 60, BUN/Creatinine Ratio 14.2, Glucose 169 H, Calcium 9.0, Total Bilirubin 0.4, AST 41, ALT 36, Alkaline Phosphatase 39, Total Protein 6.4, Albumin 4.1, Globulin 2.3, Albumin/Globulin Ratio 1.8, CBC w Diff NO MAN DIFF REQ, RBC 3.65 L, MCV 103.0 H, MCH 35.2 H, MCHC 34.1, RDW 17.3 H, MPV 7.2 L, Gran % 66.5, Lymphocytes % 28.2, Monocytes % 3.9, Eosinophils % 0.2, Basophils % 1.2, Absolute Granulocytes 5.5, Absolute Lymphocytes 2.3, Absolute Monocytes 0.3, Absolute Eosinophils 0, Absolute Basophils 0.1, Serum Alcohol 392.0 Diagnostic Imaging: Viewed by Me: Radiology Read. Discussed w/RAD: Radiology Read. CXR Impression: No infiltrate or CHF. Rhythm Strip: normal sinus rhythm (Bisi GARCIA,Ruddy) Comments: DISCHARGED BY DR. ESPINOSA (Lev GARCIA,Efraín Hilario) Departure Departure Time of Disposition: 636 Disposition: HOME OR SELF CARE Condition: Stable Clinical Impression Primary Impression: Alcohol intoxication Secondary Impressions: Opiate use Referrals: Efraín Cassidy MD (PCP/Family) Departure Forms: DETOX FACILITIES LIST General Discharge Information (Ruddy Espinosa MD) ED Attending Observation Initial Observation Note: I have seen and personally examined RACHELLE VICK on 05/16/18 at 2050. I agree with the current emergency department documentation. The disposition (admission or discharge) is uncertain at this time, he needs a period of observation for the following reason(s): altered mental status, alcohol intoxication The ED Nurse caring for this patient has been personally informed as to what the patient is being observed for. Observation Re-Evaluation: I have reevaluated RACHELLE VICK on 05/17/18 at 0640. The physical findings that support the continued need to observe this patient include stable gait. Observation Discharge: I have reevaluated RACHELLE VICK on 05/17/18 at 0640. The patient is: (x): Stable for discharge (): To be admitted to Nursing Floor (): To be placed in Observation on Nursing Floor (): For transfer to other facility The patient was being observed for alcohol intoxication, opiate use As a result of that observation, I have determined safe for discharge.. (Ruddy Espinosa MD)
[2018-05-17 05:55] VITALS: BP 119/79
== END 2018-05-17 06:58 ==
LOC: ERH 20:17 → ERHI 21:47 → ENRESERV 22:05 → ERHI 05-17 06:58
PROVIDERS: Emergency Medicine
DX: F10.129 Alcohol abuse with intoxication, unspecified (principal); Z79.82 Long term (current) use of aspirin; I48.91 Unspecified atrial fibrillation; K21.9 Gastro-esophageal reflux disease without esophagitis; M19.90 Unspecified osteoarthritis, unspecified site; F17.200 Nicotine dependence, unspecified, uncomplicated; F11.90 Opioid use, unspecified, uncomplicated; Z79.899 Other long term (current) drug therapy; R00.1 Bradycardia, unspecified
CPT/HCPCS: 1263; 6090; 71045; 80307; 93005; 93010; 96374; G0378; G0480; J2310; J2405